=== PATIENT | male | born 1970 | race Caucasian/White ===

== ENCOUNTER 2025-01-20 10:50 | Inpatient (IN) | payer BC ==
[~2025-01-20] VITALS: Ht 177.8 cm; Wt 95.3 kg
[2025-01-20 11:25] LABS: PLATELET COUNT (AUTO) 251 K/uL (150-450); RED BLOOD CELL COUNT(AUTO) 4.82 MIL/uL (4.5-6.0); RED CELL DISTRIBUTION WIDTH 13.7 % (11.5-15.0); WHITE BLOOD COUNT (AUTO) 7.0 K/uL (4.3-11.0)
[2025-01-20 11:30] LABS: CALCIUM, SERUM 9.1 mg/dL (8.5-10.1); CREATININE 1.1 mg/dL (0.6-1.3); SODIUM SERUM 139.0 mmol/L (136-145); UREA NITROGEN, BLOOD 7.0 mg/dL (7-18)
[2025-01-20] MEDS ORDERED: ONDANSETRON HCL/PF 4 MG/2 ML VIAL ONE (11:43)
[2025-01-20] MEDS ORDERED: MORPHINE SULFATE INJ 4 MG/ML DISP.SYRIN ONE (11:44)
[2025-01-20 11:46] LABS: ASPARTATE AMINOTRANSFERASE 20.0 U/L (15-37); TOTAL PROTEIN, SERUM 7.6 g/dL (6.4-8.2)
[2025-01-20] MEDS: ONDANSETRON HCL/PF 4 MG/2 ML VIAL IV ONE (11:46)
[2025-01-20] MEDS: IV NS 0.9% 1,000 ML BAG IV ONE ×2 (11:50→14:50)
[2025-01-20] MEDS ORDERED: IV NS 0.9% 250 ML IV ONE (11:51)
[2025-01-20] MEDS ORDERED: IOHEXOL-300 100 ML VIAL IV ONE (11:51)
[2025-01-20] MEDS: MORPHINE SULFATE INJ 2 MG/ML DISP.SYRIN IV ONE (11:52)
[2025-01-20] MEDS ORDERED: FLAGYL/NS RTU 500 MG/100 ML PIGGYBACK IV ONE (13:30)
[2025-01-20 14:19] LABS: LACTIC ACID 2.0 mmol/L (0.4-2.0)
[2025-01-20] MEDS ORDERED: HYDROCODONE/APAP 5/325MG TABLET PO PRN (14:30)
[2025-01-20] MEDS ORDERED: ONDANSETRON HCL/PF 4 MG/2 ML VIAL IVP PRN (14:30)
[2025-01-20] MEDS ORDERED: ATOR20TA PO (14:33)
[2025-01-20] MEDS ORDERED: CAND16TA13 PO (14:33)
[2025-01-20] MEDS: METRONIDAZOLE 500MG/ NS 100ML 500 MG in PREMIX 1 EA IV ONE (15:10)
[2025-01-20] MEDS: LEVOFLOXACIN 750 MG /D5W 150ML PIGGYBACK IV ONE (16:15)
[2025-01-20 18:00] VITALS: BP 135/83; TEMP 97.5; O2SAT 100
[2025-01-20] MEDS ORDERED: PIPERACILLIN /TAZOBACTAM 4.5 G in IV D5W 50 ML IV SCH (18:00)
[2025-01-20] MEDS: IV 1/2NS 1000 ML 1,000 ML IV PRN (18:03)
[2025-01-20] MEDS: ZOSYN IVPB 3.375 G in IV D5W 50ml IV ONE (18:17)
[2025-01-20] MEDS: MORPHINE SULFATE INJ 2 MG/ML DISP.SYRIN IV PRN (19:33)
[2025-01-20 20:00] VITALS: BP 141/81; TEMP 97.9; O2SAT 97
[2025-01-21] MEDS: PIPERACILLIN /TAZOBACTAM 3.375 G in IV D5W 100 ML IV SCH (02:11)
[2025-01-21 07:51] LABS: PLATELET COUNT (AUTO) 219 K/uL (150-450); RED BLOOD CELL COUNT(AUTO) 4.35 MIL/uL (4.5-6.0); RED CELL DISTRIBUTION WIDTH 13.5 % (11.5-15.0); WHITE BLOOD COUNT (AUTO) 5.0 K/uL (4.3-11.0)
[2025-01-21 07:56] LABS: CALCIUM, SERUM 8.7 mg/dL (8.5-10.1); CREATININE 1.0 mg/dL (0.6-1.3); PHOSPHORUS 4.3 mg/dL (2.5-4.9); SODIUM SERUM 141.0 mmol/L (136-145); UREA NITROGEN, BLOOD 7.0 mg/dL (7-18)
[2025-01-21 08:00] VITALS: BP 119/77; TEMP 98.2; O2SAT 96
[2025-01-21] MEDS: PANTOPRAZOLE 40 MG VIAL IV SCH (09:07)
[2025-01-21 16:00] VITALS: BP 119/77; TEMP 98.2; O2SAT 96
[2025-01-21 20:00] VITALS: BP 116/75; TEMP 97.7; O2SAT 94
[2025-01-22 08:00] VITALS: BP 103/75; TEMP 97.5; O2SAT 99
[2025-01-22 16:00] VITALS: BP 126/76; TEMP 97.5; O2SAT 98
[2025-01-22 20:00] VITALS: BP_SYST 116; BP_SYST 95; BP_DIAS 74; BP_DIAS 79; TEMP 97.3; O2SAT 93; O2SAT 97
[2025-01-22 20:54] LABS: PLATELET COUNT (AUTO) 249 K/uL (150-450); RED BLOOD CELL COUNT(AUTO) 4.53 MIL/uL (4.5-6.0); RED CELL DISTRIBUTION WIDTH 13.5 % (11.5-15.0); WHITE BLOOD COUNT (AUTO) 4.7 K/uL (4.3-11.0)
[2025-01-23 06:26] VITALS: BP 116/74; TEMP 97.3; O2SAT 97
[2025-01-23 06:33] LABS: CALCIUM, SERUM 9.2 mg/dL (8.5-10.1); CREATININE 1.1 mg/dL (0.6-1.3); PHOSPHORUS 4.5 mg/dL (2.5-4.9); SODIUM SERUM 141.0 mmol/L (136-145); UREA NITROGEN, BLOOD 6.0 mg/dL (7-18)
[2025-01-23 08:00] VITALS: BP 119/79; TEMP 97.9; O2SAT 96
[2025-01-23] MEDS ORDERED: AMOX-430 PO (10:03)
== END 2025-01-23 17:21 | disposition home or self-care (01) | DRG 392 ==
LOC: ER 10:50 → MED 16:30
PROVIDERS: ATTEND Internal Medicine
DX: K57.20 Diverticulitis of large intestine with perforation and abscess without bleeding (principal); I10 Essential (primary) hypertension; E78.5 Hyperlipidemia, unspecified; K40.20 Bilateral inguinal hernia, without obstruction or gangrene, not specified as recurrent; K42.9 Umbilical hernia without obstruction or gangrene
CPT/HCPCS: 36415; 80048-TC; 80076-TC; 83605-TC; 83690-TC; 83735-TC; 84100-TC; 85025-TC; 87040-TC; A4216; A4223; G0378; J1956; J2270; J2405; J2470; J2543; J3490; J7030; J7050; J7060; Q9967